=== PATIENT | male | born 1945 | race Caucasian/White ===

== ENCOUNTER → 2018-02-13 08:00 | Outpatient (CLI) | payer OTHER, SELFPAY ==
--- NOTE | 2018-02-13 08:06 | CT_ITS ---
CT lung screening EXAM: CT LUNG LOW DOSE WO CONTRAST HISTORY: 30 pack-year smoking history, asymptomatic ITS.REASON: HX OF NICOTINE DEPENDENCE ORDERING PHYSICIAN: Ayush Champion PATIENT AGE: 72 years COMPARISON: 01/30/2017 TECHNIQUE: The exam was performed on a GE Light Speed [address] scanner using 2.90 mGy CTDI. A low dose helical CT CHEST was performed on a multi-detector scanner. All CT scans at the facility use one or more dose reduction, viz: automated exposure control, ma/kV adjustment per patient size (including targeted exams where dose is matched to indication, i.e. head), or iterative reconstruction technique. The LDCT was performed in a facility that meets the criteria for the screening program. Data regarding this exam was submitted to ACR which is an approved registry. The order for this exam indicates that it came as a result of a lung cancer screening counseling shard decision-making visit that included all the elements required of such a visit including smoking cessation. The radiologist interpreting this exam meets the CMS criteria for the LDCT lung cancer screening program. The exam is reported using the Lung-RADS classification scale and reported to the ACR registry. NOTE: This study was performed for the specific purposes of lung cancer screening and is not an alternative to diagnostic chest CT. RADIATION DOSE: CTDI vol(CT dose Index-volume) = 2.90mG DLP (Dose Length Product) = 102.12 mGcm FINDINGS: There is COPD with hyperinflation and attenuation of the peripheral pulmonary vessels with a few blebs in the lung apices there is a 4 mm nodule within left major fissure unchanged benign-appearing. Scattered small nodes present in the mediastinum some which are calcified. There are coronary artery calcifications. There are multiple hepatic cysts some of which are slightly larger. For instance, a cyst within the caudate lobe measures 3.7 cm previously measuring 3.5 cm. The right hemidiaphragm is elevated. No central obstructing lesions are evident. IMPRESSION: 1. Lung RADS Category: 2, benign 2. Other findings: COPD, coronary artery calcifications, hepatic cysts RECOMMENDATIONS: 12 month LDCT follow-up
== END ==
PROVIDERS: Family Provider Family Medicine; PCP Family Medicine; Visit Provider Internal Medicine
DX: Z12.2 Encounter for screening for malignant neoplasm of respiratory organs (principal); Z87.891 Personal history of nicotine dependence

== ENCOUNTER → 2019-04-18 10:57 | Outpatient (CLI) | payer MEDICARE, OTHER, SELFPAY ==
--- NOTE | 2019-04-18 10:59 | CT_ITS ---
PROCEDURE: CT LUNG SCREENING CLINICAL INDICATION: HX TOBACCO USE Sixty pack-year smoking history, asymptomatic for lung cancer COMPARISON: LDCTLCAS LDCT FOR LUNG CA SCREEN from 01/30/[address] lung screening from 02/13/2018 TECHNIQUE: The exam was performed on a GE Light Speed [address] scanner using 2.90 mGy CTDI. A low dose helical CT CHEST was performed on a multi-detector scanner. All CT scans at the facility use one or more dose reduction, viz: automated exposure control, ma/kV adjustment per patient size (including targeted exams where dose is matched to indication, i.e. head), or iterative reconstruction technique. The LDCT was performed in a facility that meets the criteria for the screening program. Data regarding this exam was submitted to ACR which is an approved registry. The order for this exam indicates that it came as a result of a lung cancer screening counseling shard decision-making visit that included all the elements required of such a visit including smoking cessation. The radiologist interpreting this exam meets the CMS criteria for the LDCT lung cancer screening program. The exam is reported using the Lung-RADS classification scale and reported to the ACR registry. NOTE: This study was performed for the specific purposes of lung cancer screening and is not an alternative to diagnostic chest CT. RADIATION DOSE: CTDI vol(CT dose Index-volume) = 2.90mG DLP (Dose Length Product) = 104.20 mGcm FINDINGS: Stable 5 mm nodule in the right middle lobe. Elevated right hemidiaphragm with atelectatic change in the right lung base. Nodularity in the right major fissure OTHER FINDINGS: Old granulomatous disease. Coronary artery calcification. COPD. Multiple hypodense liver lesions consistent with cyst IMPRESSION: Lung rads category 2 benign Recommend continued annual screening LD CT Dictated by: Floyd Shannon MD 04/24/2019 09:24 Electronically signed by Floyd Shannon MD in [place] 04/24/2019 09:24
== END ==
PROVIDERS: PCP Family Medicine; Visit Provider Family Medicine
DX: Z87.891 Personal history of nicotine dependence (principal); Z12.2 Encounter for screening for malignant neoplasm of respiratory organs

== ENCOUNTER → 2020-01-08 15:32 | Outpatient (CLI) | payer MEDICARE, OTHER, SELFPAY ==
--- NOTE | 2020-01-08 15:36 | XR_ITS ---
PROCEDURE: XR ELBOW RT MIN 3V CLINICAL INDICATION: ELBOW PAIN, RIGHT COMPARISON: No exams were available for comparison FINDINGS: No fracture or dislocation. No lytic or blastic change. There is normal mineralization. The joint spaces are well-preserved. No significant degenerative/arthritic changes. No erosive changes evident. Other findings:None. IMPRESSION: No acute findings. Dictated by: Floyd Shannon MD 01/08/2020 17:35 Floyd Shannon MD in [place] 01/08/2020 17:35
== END ==
PROVIDERS: PCP Nurse Practitioner Family; Visit Provider Nurse Practitioner Family
DX: M25.521 Pain in right elbow (principal)
CPT/HCPCS: 73080

== ENCOUNTER 2020-11-16 12:56 | Emergency (ER) | payer MEDICARE, OTHER, SELFPAY ==
[2020-11-16 13:00] VITALS: BP 127/80; PULSE 79; RESP 20; TEMP 36.8; O2SAT 98; BMI 22.8
--- NOTE | 2020-11-16 13:33 | HMH.EDUTC ---
[facility] [place] Disposition Clinical Impression: Encounter for laboratory testing for COVID-19 virus Disposition: Home, Self-Care Condition on Discharge: Good Instructions: DI for COVID-19 (Suspected or Confirmed ), Preventing the Spread of Coronavirus Discharge Instructions Additional Instructions: *Monitor Temp, Over the counter Motrin or Tylenol as directed/as needed Tylenol every 4 hours and Motrin every 6 hours (as long as your family doctor has told you that you can take it) for fever or pain. and straight to ER if unable to lower temp less than 101.0 after medication given *Warm salt water gargles may help to soothe the throat *Throat Lozenges *Warm fluids like tea with honey may help to soothe the throat *Sleep elevated *Humidifier/Vaporizer *Flonase 2 sprays in each nostril daily but be aware that it may take 2-3 days before you notice improvement Follow up IMMEDIATELY for new or worsening symptoms or no Noticeable improvement over the next 48-72 hours. 911 for difficulty breathing or swallowing You were tested for today for COVID19 your test result should be back in the next 24-48 hours, you may call to the [facility] to see if your test results are back in the next 48 hours [phone] [facility] hours are 9am-9pm You was given a handout with instructions for Self Quarantine and Self isolation for while you wait on test results and what to do if they are positive If you are positive the Health Dept will be contacting you also Referrals: Shamar Daily MD [Primary Care Provider] - As needed Time of Disposition: 13:34 Medical Decision Making - Azael Inquiry Pt receiving controlled substance: No Azael was queried for this patient: No Vital Signs: 11/16/20 13:00 Temperature 98.2 F Temperature Source Oral Pulse Rate [Right Brachial] 79 Respiratory Rate 20 Blood Pressure [Right Arm] 127/80 Blood Pressure Mean [Right Arm] 95 Blood Pressure Source [Right Arm] Automatic Cuff Blood Pressure Position [Right Arm] Sitting 02 Sat by Pulse Oximetry 98 Oxygen Delivery Method Room Air Orders (Tests/Meds): ORDERS Category Date Time Status Covid-19 Nasal PCR ([facility]) Routine Lab 11/16/20 12:59 Ordered [facility] [place] HPI - General Stated complaint: covid test Time Seen by Provider: 11/16/20 13:33 Mode of Arrival: Ambulatory Source of Information: Patient Limitations: No Limitations Description of Symptoms (Recalled from Triage Doc. by RN): PATIENT HAS HAD A COLD BUT FEELS BETTER. SON'S GIRLFRIEND HAD COVID, HOWEVER HE WAS NOT DIRECTLY EXPOSED. WANTS TESTED HEENT Symptoms (Recalled from RN notes): Yes Resp Symptoms (Recalled from RN notes): No Skin Symptoms (Recalled from RN notes): No MS Symptoms (Recalled from RN notes): No Functional Status (Recalled from RN notes): WNL - History of Present Illness Provider Complaint: Patient states that he has been having cold like symptoms Reports that he had low grade fever, body aches, chills, and nasal congestion States that he was around his son on Monday and spoke with son's girlfiend and since then girlfriend tested positive for COVID States that he wasnt around her but was his son so he came in to get checked - Related Data Home Medications Medication Instructions Recorded Confirmed Ergocalciferol (Vitamin D2) 400 unit PO DAILY 02/26/18 03/16/18 [Vitamin D] Gelatin 600 mg PO DAILY 02/26/18 03/16/18 Melatonin 1 mg PO DAILY 02/26/18 03/16/18 Pravastatin Sodium [Pravachol 40mg 40 mg PO DAILY 02/26/18 03/16/18 Tablet] Allergies Allergy/AdvReac Type Severity Reaction Status Date / Time No Known Allergies Allergy Verified 03/16/18 10:54 - Worker's Comp Is this a Worker's Comp case?: No [facility] History - Hepatitis A Screen Drug use history?: No High risk sexual behaviors?: No History of sexually transmitted infection?: No Currently employed?: No Childcare worker?: No Do you have indoor plumbing?: Yes Do you have electricity?: Yes Attestation statement::
[2020-11-16 13:34] VITALS: BP 127/80; PULSE 79; RESP 20; TEMP 36.8; O2SAT 98
--- NOTE | 2020-11-16 19:13 | PC.NURSE ---
PATIENT NOTIFIED OF POSITIVE COVID TEST AT THIS TIME
== END 2020-11-16 13:37 | disposition home or self-care (01) ==
PROVIDERS: Emergency Provider Nurse Practitioner; PCP Family Medicine
DX: U07.1 COVID-19 (principal); I10 Essential (primary) hypertension; E78.5 Hyperlipidemia, unspecified
CPT/HCPCS: G0463; 99202; U0003

== ENCOUNTER → 2021-06-16 09:08 | Outpatient (CLI) | payer MEDICARE, SELFPAY | PROVIDERS: PCP Family Medicine; Visit Provider Surgery | DX: Z01.812 Encounter for preprocedural laboratory examination (principal); Z11.52 Encounter for screening for COVID-19; Z12.11 Encounter for screening for malignant neoplasm of colon | CPT/HCPCS: C9803; U0003; U0005 ==

== ENCOUNTER 2021-06-18 06:25 | Day surgery (SDC) | payer MEDICARE, SELFPAY ==
[2021-06-15 15:41] VITALS: BMI 22.8
[2021-06-18] VITALS (15 sets, daily range): BP systolic 97–147; BP diastolic 59–81; PULSE 76–105; RESP 16–18; TEMP 36.3–36.4; O2SAT 92–96
--- NOTE | 2021-06-18 07:58 | HMH.SCOPE ---
- Procedure: Date: 06/18/21 Patient Date of :: 1945 Procedure Performed:: Total colonoscopy with polypectomy via snare and biopsy Indications:: Patient is a 76-year-old male. He has undergone multiple previous colonoscopies. He had colonoscopy 10/11/2000 and on 12/18/[address] Coronel. He then had undergone multiple colonoscopies about every 3 years at outside facility due to polyps. I had performed colonoscopy on 01/03/2017 and he had a tubular adenoma and a subtle large sessile serrated adenoma in the transverse colon which was marked with Marianne ink. He underwent repeat colonoscopy on 02/27/2018 and had tubular adenoma. I recommended 3-year follow-up. Performing Provider:: Eulogio Sánchez MD Referring Provider:: Rodrick Daily MD Sedation:: Fentanyl 150 mcg, Versed 9 mg. Procedure:: Patient was taken to endoscopy procedure room. He was positioned in lateral decubitus position. Adequate intravenous sedation was achieved with anesthesia titration of propofol. Digital examination was performed which revealed normal sphincter tone. He had uniformly enlarged prostate. Variable stiffness Olympus colonoscope was inserted via the anus. It was advanced to the cecum. There was some undigested vegetable matter and legumes in the right colon, particularly in the cecum. Irrigation and suctioning was performed but good visualization was unable to be achieved. Xavier net was used to grab the undigested vegetable matter and manipulate this to different locations in the colon. Ultimately decent visualization was able to be achieved of the right colon using this method. The ileocecal valve and appendiceal orifice were identified. Colonoscope was slowly withdrawn through the colon with careful surveillance. Previous polypectomy site that was tattooed with Marianne ink was identified there was no evidence of any recurrence. Distal to this there was a sessile polyp removed in a piecemeal fashion using cold cutting snare. There was noted to be some moderate left-sided diverticulosis. Retroflexion within the rectum revealed no evidence of any bleeding internal hemorrhoids. He did have what appeared to be grade 1 prolapsing hemorrhoids. Colonoscope was withdrawn. Findings:: Uniformly enlarged prostate Suboptimal visualization of the right colon due to undigested vegetable matter and legumes Distal transverse colon polyp Sigmoid diverticulosis Internal hemorrhoids Recommendations:: Plan to follow-up on the histopathology. Likely repeat colonoscopy in 2 years given the suboptimal visualization of the right colon with instructions on clear low residue diet for 5 to 7 days preceding procedure. Complications:: None immediately apparent Estimated blood obtained (mL): 2
== END 2021-06-18 08:51 | disposition home or self-care (01) ==
LOC: OUTP 06:26
PROVIDERS: PCP Family Medicine; Visit Provider Surgery
PROC: 0DJD8ZZ Inspection of Lower Intestinal Tract, Via Natural or Artificial Opening Endoscopic (ICD-10-PCS; principal; 2021-06-18 07:30)
DX: Z12.11 Encounter for screening for malignant neoplasm of colon (principal); K64.9 Unspecified hemorrhoids; K63.5 Polyp of colon; K57.32 Diverticulitis of large intestine without perforation or abscess without bleeding; K52.89 Other specified noninfective gastroenteritis and colitis; N40.0 Benign prostatic hyperplasia without lower urinary tract symptoms; Z86.010 Personal history of colon polyps; E78.5 Hyperlipidemia, unspecified; I10 Essential (primary) hypertension; Z79.899 Other long term (current) drug therapy
CPT/HCPCS: 45380; 45385; 88305; 99152; 99153

== ENCOUNTER → 2023-02-15 11:27 | Outpatient (CLI) | payer MEDICARE, SELFPAY ==
--- NOTE | 2023-02-15 11:31 | XR_ITS ---
FINAL REPORT CLINICAL HISTORY: NO KNOWN INJURY COMPARISON: None FINDINGS: RIGHT SHOULDER Three views demonstrate no acute fracture or dislocation. The joint spaces appear normal. The visualized bony structures are well aligned. No soft tissue abnormality is seen. IMPRESSION: No acute process. Reviewed, Interpreted and Dictated by Eulogio Hirsch III, MD Transcribed by Diane Holcomb Authenticated and [facility]
== END ==
PROVIDERS: PCP Family Medicine; Visit Provider Family Medicine
DX: M25.511 Pain in right shoulder (principal)
CPT/HCPCS: 73030

== ENCOUNTER 2023-05-18 16:17 | Emergency (ER) | payer MEDICARE, SELFPAY ==
[2023-05-18 16:25] VITALS: BP 133/79; PULSE 92; RESP 17; TEMP 37; O2SAT 95; BMI 24.8
--- NOTE | 2023-05-18 16:38 | ED_ITS ---
Discharge Plan Disposition Patient Disposition: Home, Self-Care Condition: Good Prescriptions Prescriptions: New benzonatate [benzonatate] 100 mg capsule 100 mg PO TIDP PRN (Reason: Cough) Qty: 30 0RF ondansetron 4 mg Tablet,Disintegrating 4 mg PO Q8H PRN (Reason: Nausea) Qty: 12 0RF No Action pravastatin 40 MG tablet 40 mg PO DAILY Referrals Follow up/Referrals: Shamar Daily MD [Primary Care Provider] - See instructions Activity Restrictions/Add. Instructions Additional Instructions/Restrictions: Drink plenty of fluids. Take tylenol for pain or fever. Follow up with your regular doctor. GO TO THE ER FOR ANY WORSENING SYMPTOMS Clinical Impressions Clinical Impression: Acute viral syndrome Instructions Patient Instructions: DI for Viral Syndrome Discharge ED Provider: Cristino Monterroso [facility] General Stated complaint: stuffy head, runny nose, body aches Mode of Arrival: Ambulatory Source of Information: Patient Limitations: No Limitations Time Seen by Provider: 05/18/23 16:38 Description of Symptoms (Recalled from Triage Doc. by RN): Pt's symptoms fever, body ache, and chills. HEENT Symptoms (Recalled from RN notes): Yes Resp Symptoms (Recalled from RN notes): No Skin Symptoms (Recalled from RN notes): No MS Symptoms (Recalled from RN notes): No Functional Status (Recalled from RN notes): n/a History of Present Illness Provider Complaint: He states that for the past 2 days he has had fever, chills, and body aches. Related Data Home Medications Medication Instructions Recorded Confirmed pravastatin 40 mg tablet 40 mg PO DAILY Cholesterol 02/26/18 05/18/23 Previous Rx's Medication Instructions Recorded benzonatate 100 mg capsule 100 mg PO TIDP PRN Cough #30 caps 05/18/23 ondansetron 4 mg disintegrating 4 mg PO Q8H PRN Nausea #12 tabs 05/18/23 tablet Allergies Allergy/AdvReac Type Severity Reaction Status Date / Time No Known Allergies Allergy Verified 05/18/23 16:36 Worker's Comp Is this a Worker's Comp case?: No [facility] Disclaimer: The information contained in this section may have been updated after the patient was seen, as this information can be updated by other users. Social History Smoking Status: Current every day smoker tobacco type: cigarettes packs per day: 1 alcohol intake: current substance use type: denies use current occupational status: other Travel in the last 8 weeks: None household members: spouse housing: house current occupational exposures/hazards: No caffeine: Yes ROS Obtained: Yes All systems reviewed & no additional complaints except as documented Constitutional Constitutional: Reports chills and Reports fever(s) Eyes Eyes: Denies eye discharge ENT Ears, Nose, Mouth, and Throat: Reports as per HPI Cardiovascular Cardiovascular: Denies chest pain Respiratory Respiratory: Denies shortness of breath, Denies chest congestion, Denies cough, Denies stridor and Denies wheezing Gastrointestinal Gastrointestingal: Reports nausea; Denies abdominal pain, constipation, cramping, diarrhea or vomiting Musculoskeletal Musculoskeletal: Denies arthralgias Integumentary/Breasts Skin/Breast: Denies rash Neurologic Neurologic: Denies paresthesias Allergic/Immunologic Allergic/Immunologic: Denies wheezing Physical Exam General General appearance: alert and in no apparent distress Head Head exam: atraumatic, normocephalic and normal inspection Eye Eye exam: Present normal appearance, PERRL and EOMI ENT ENT exam: Present normal exam, normal oropharynx, mucous membranes moist, TM's normal bilaterally and normal external ear exam Neck Neck exam: Present normal inspection, full ROM and trachea midline; Absent meningismus or lymphadenopathy Chest Chest inspection: Present normal inspection and symmetric chest wall rise; Absent tenderness Respiratory Respiratory exam: Present normal lung sounds bilaterally; Absent respiratory distress Cardiovascular Cardiovascular exam: Present regular rate and normal rhythm; Absent JVD Abdominal Exam Abdominal exam: Present soft and normal bowel sounds; Absent distention, tenderness or guarding Extremities Exam Extremities exam: Present normal inspection, full ROM and normal capillary refill; Absent calf tenderness Back Exam Back exam: Present normal inspection; Absent tenderness Neurological Exam Neurological exam: Present alert and oriented X3 Psychiatric Psychiatric exam: Present normal affect and normal mood Skin Skin exam: Present warm, dry, intact and normal color Lymphatic Lymphatic Findings: no adenopathy Medical Decision Making Medical Records Medical records reviewed: No I reviewed the patient's medical records. Azael Inquiry Pt receiving controlled substance: No Vital Signs: 05/18/23 16:25 Temperature 98.6 F Temperature Source Oral Pulse Rate [Right Radial] 92 H Respiratory Rate 17 Blood Pressure [Right Arm] 133/79 Blood Pressure Mean [Right Arm] 97 Blood Pressure Source [Right Arm] Automatic Cuff Blood Pressure Position [Right Arm] Sitting 02 Sat by Pulse Oximetry 95 Oxygen Delivery Method Room Air Lab Data Lab results reviewed: Yes I reviewed the patient's lab results. Orders (Tests/Meds): ORDERS Category Date Time Status Covid-19 Nasal PCR ([facility]) Routine Lab 05/18/23 16:25 Ordered
[2023-05-18 16:50] LABS: UTC Influenza A Antigen Negative (Negative); UTC Influenza B Antigen Negative (Negative)
[2023-05-18 17:45] LABS: Adenovirus,PCR Not Detected (NotDetected); Coronavirus 19, PCR Not Detected (NotDetected); Coronavirus NL63 Not Detected (NotDetected); Coronavirus OC43 Not Detected (NotDetected); Coronovirus HKU1,PCR Not Detected (NotDetected); Human Metapneumovirus Not Detected (NotDetected); Influenza A, PCR Not Detected (NotDetected); Influenza AH1, 2009 Not Detected (NotDetected); Influenza AH1, PCR Not Detected (NotDetected); Influenza AH3,PCR Not Detected (NotDetected); Influenza B, PCR Not Detected (NotDetected); Parainfluenza 1, PCR Not Detected (NotDetected); Parainfluenza 2, PCR Not Detected (NotDetected); Parainfluenza 3, PCR Not Detected (NotDetected); Parainfluenza 4, PCR Not Detected (NotDetected); Respiratory Syncytial Virus Not Detected (NotDetected); Rhinovirus/Enterovirus Not Detected (NotDetected)
[2023-05-18 17:53] VITALS: BP 133/79; PULSE 92; RESP 17; TEMP 37; O2SAT 95
[2023-05-18 19:10] LABS: Coronavirus 229E Detected (NotDetected)
== END 2023-05-18 17:20 | disposition home or self-care (01) ==
PROVIDERS: Emergency Provider Nurse Practitioner Family; PCP Family Medicine
DX: R09.81 Nasal congestion (principal); B34.2 Coronavirus infection, unspecified; M79.18 Myalgia, other site; R50.9 Fever, unspecified; F17.210 Nicotine dependence, cigarettes, uncomplicated; R11.0 Nausea
CPT/HCPCS: 87632; 87635; 87804; 99212; 99214; G0463

== ENCOUNTER 2023-09-08 09:26 | Day surgery (SDC) | payer MEDICARE, SELFPAY ==
[2023-09-06 14:09] VITALS: BMI 25.7
[2023-09-08] VITALS (7 sets, daily range): BP systolic 92–127; BP diastolic 54–88; PULSE 68–95; RESP 18; TEMP 36.1–36.3; O2SAT 92–99
[2023-09-08] MEDS: LACTATED RINGERS 1000ML 1,000 ML 25 ML IV (09:58)
--- NOTE | 2023-09-08 10:00 | HMH.SCOPE ---
Procedure: Date: 09/08/23 Patient Date of :: 1945 Procedure Performed:: Total colonoscopy to terminal ileum with numerous polypectomy by variety of technique . Indications:: Patient is a 78-year-old male who has undergone multiple previous colonoscopies. He had colonoscopy 10/11/2000 and on 12/18/[address] Coronel. He then had undergone multiple colonoscopies about every 3 years at outside facility due to polyps. I had performed colonoscopy on 01/03/2017 and he had a tubular adenoma and a subtle-appearing but large sessile serrated adenoma in the transverse colon which was marked with Marianne ink. He underwent repeat colonoscopy on 02/27/2018 and had tubular adenoma. Colonoscopy on 06/18/2021 revealed some undigested vegetable matter and legumes in the right colon which partially temporarily obscured visualization. Ultimately with retrieval and manipulation and irrigation and suctioning decent visualization was achieved. He did have a uniformly enlarged prostate, distal transverse colon sessile serrated adenoma, sigmoid diverticulosis, mild internal hemorrhoids, and some rectosigmoid focal active colitis. Recommendations were for repeat colonoscopy 2 years. . Performing Provider:: Eulogio Sánchez MD Referring Provider:: Rodrick Daily MD Sedation:: MAC sedation Procedure:: Patient history was obtained and appropriate physical examination was performed. Patient's medications and allergies were reviewed. Informed consent was obtained after explaining the benefits, alternatives, and risks of the procedure including, but not limited to, bleeding, perforation, missed lesions, and adverse reaction to anesthesia medications. Patient was transported to endoscopy procedure room. Patient was connected to monitoring devices. Throughout the procedure the patient's blood pressure, pulse, and oxygen saturations were monitored continuously. Patient identification and planned procedure were verified by the staff. Patient was positioned in lateral decubitus position. Digital anorectal exam was performed. Variable stiffness Olympus colonoscope was inserted and advanced under direct visualization to the cecum. Adequacy of the colonic preparation was noted. The colonoscope was advanced a short distance into the terminal ileum. The colonoscope was then slowly withdrawn while carefully examining the color, texture, anatomy, and integrity of the mucosoa circumferentially. Within the rectum retroflexion was performed. Colonoscope was then withdrawn. Impression: Colonoscope was ultimately advanced to the cecum. Terminal ileum appeared normal. In the ascending colon there was a tiny punctate subtle possible early polyp removed with biopsy forceps. In the transverse colon there was a subtle but large flat sessile polyp irregular. Ultimately noted to be spanning with of approximately 25 mm. Chula view was injected submucosally to delineate polyp from normal mucosa and raise the polyp. Most of it was removed in a piecemeal fashion using hot snare. Remainder of adenomatous appearing tissue at the edges were removed with cold snare followed by biopsy forceps. It appeared as though the lesion was removed in its entirety. Marianne ink was injected to kwame the area. In the distal transverse colon previous tattoo marking with Marianne ink was noted. There was some scarring at previous polypectomy site. There was some prominent mucosa and possible polyp which was removed with cold biopsy forceps adjacent to the polypectomy scar. In the sigmoid colon there was a small adenomatous appearing polyp removed with cold snare. That he had sigmoid diverticulosis. In the distal sigmoid colon there was an irregular subtle sessile polyp. Chula view was injected and it was removed in its entirety with hot snare. Retroflexion within the rectum revealed circumferential prolapsing internal hemorrhoids. Colonoscope was withdrawn. . Findings:: Polyps as noted above. Most notable was the transverse colon polyp removed in a piecemeal fashion using hot snare and distal sigmoid polyp which appeared similar requiring injection of Chula view and removal with hot snare. Sigmoid diverticulosis Internal hemorrhoids . Recommendations:: Repeat colonoscopy pending pathology. However, given the large sessile but subtle polyp in the transverse colon and distal sigmoid colon may need repeat colonoscopy within a year to ensure complete removal. Complications:: None immediately apparent Estimated blood obtained (mL): 3 Colonoscopy Component Colonoscopy Component Was a colonoscopy performed during today's procedure?: Yes Recommended follow up colonoscopy of at least 10 years?: No If no, follow up colonoscopy recommended in ___ years?: See above Reason for not recommending >/= 10 yr follow-up interval?: See above
--- NOTE | 2023-09-08 10:21 | P.PNANES_ITS ---
[facility] Disclaimer: The information contained in this section may have been updated after the patient was seen, as this information can be updated by other users. Surgical History (Updated 09/08/23 @ 09:50 by Anju Mckeon RN) History of cholecystectomy Family History (Updated 09/08/23 @ 09:50 by Anju Mckeon RN) Other Breast cancer Social History Smoking Status: Light tobacco smoker tobacco type: cigarettes packs per day: 1 alcohol intake: current alcohol intake frequency: 0-2 drinks per day substance use type: denies use current occupational status: retired and other Travel in the last 8 weeks: None household members: spouse housing: house current occupational exposures/hazards: No caffeine: Yes [facility] Anesthesia Checklist Patient Identification Patient Identification: Arm Band Structural Data Admitted From: Home Planned Operative Procedure/s: Colonoscopy Consent for Planned Operative Procedure(s) Verified: Yes Verified Documents: Surgical Consent and History and Physical NPO Status Verified Time NPO: 00:00 Additional verifications Anesthesia Reactions: No Airway Assessment Mallampati Score:: Class II C-Spine Mobility Assessed: Yes TMJ Mobility Assessed: Yes Dentition: Good Dentition Neurological Assessment Level of Consciousness: Awake and Alert Anesthesia Plan Anesthesia Risk discussed: Yes Anesthesia Plan: Verified ASA Class: II Anesthesia Type: MAC
--- NOTE | 2023-09-08 11:58 | SUR.PHASEII ---
Pt noted a small skin tear to left hand by base of thumb. Approx .5cm long x.1cm wide. No bleeding noted. Cleansed with NS and applied 2 steri strip to hold edges of skin together. Instructed to let steri strips fall off on own and keep clean and dry. Verbalized understanding.Pt did not know how skin tear got there. No c/o pain.
--- NOTE | 2023-09-08 12:24 | SUR.PHASEII ---
Pt did not want to wait any longer for MD to come to see him. Emphasized follow up appointment date with pt and friend as well as returning to ER for severe abdominal pain or bleeding, verbalized understanding.
== END 2023-09-08 12:27 | disposition home or self-care (01) ==
PROVIDERS: PCP Family Medicine; Visit Provider Surgery
PROC: 0DJD8ZZ Inspection of Lower Intestinal Tract, Via Natural or Artificial Opening Endoscopic (ICD-10-PCS; CPT 45378; principal; 2023-09-08 10:30)
DX: Z12.11 Encounter for screening for malignant neoplasm of colon (principal); Z86.010 Personal history of colon polyps; D12.2 Benign neoplasm of ascending colon; D12.3 Benign neoplasm of transverse colon; K63.5 Polyp of colon; K57.30 Diverticulosis of large intestine without perforation or abscess without bleeding; K64.8 Other hemorrhoids
CPT/HCPCS: 45380; 45385; J2704

== ENCOUNTER 2024-01-29 15:42 | Outpatient (CLI) | payer MEDICARE, SELFPAY | END 2024-01-29 23:59 | disposition home or self-care (01) | LOC: RT 15:43 | PROVIDERS: PCP Family Medicine; Visit Provider Family Medicine | DX: R55 Syncope and collapse (principal) | CPT/HCPCS: 93225; 93227 ==

== ENCOUNTER 2024-02-21 09:56 | Outpatient (CLI) | payer MEDICARE, SELFPAY | END 2024-02-21 23:59 | disposition home or self-care (01) | LOC: LAB 10:00 | PROVIDERS: PCP Family Medicine; Visit Provider Family Medicine | DX: R55 Syncope and collapse (principal) | CPT/HCPCS: 93225; 93227 ==

== ENCOUNTER 2024-09-27 09:27 | Day surgery (SDC) | payer MEDICARE, SELFPAY ==
--- NOTE | 2024-09-27 09:18 | EXP.GEN.HP ---
HPI HPI HPI: Patient is a 79-year-old male who presents for follow-up colonoscopy. He has undergone multiple previous colonoscopies. He had colonoscopy 10/11/2000 and on 12/18/[address] Coronel. He then had undergone multiple colonoscopies about every 3 years at outside facility due to polyps. I had performed colonoscopy on 01/03/2017 and he had a tubular adenoma and a subtle-appearing but large sessile serrated adenoma in the transverse colon which was marked with Marianne ink. He underwent repeat colonoscopy on 02/27/2018 and had tubular adenoma. Colonoscopy on 06/18/2021 revealed some undigested vegetable matter and legumes in the right colon which partially temporarily obscured visualization. He had distal transverse colon sessile serrated adenoma, sigmoid diverticulosis, mild internal hemorrhoids, and some rectosigmoid focal active colitis. Recommendations were for repeat colonoscopy 2 years. Follow-up colonoscopy was done on 09/21/2023 at which time he was noted to have polyps once again. However there was a large 25mm sessile but subtle polyp in the transverse colon and distal sigmoid colon which required injection Ellaview and hot snare for removal. Large transverse colon polyp pathology revealed sessile serrated lesion. There was distal transverse colon previous tattoo noted without recurrence. Given this recommendations were for follow-up colonoscopy 1 year to ensure complete removal. [facility] Disclaimer: The information contained in this section may have been updated after the patient was seen, as this information can be updated by other users. Medical History Urine troubles History of COVID-19 Hyperlipidemia Surgical History History of cholecystectomy Family History Other Breast cancer Social History (Updated 09/27/24 @ 09:54 by Natalie Jon RN) Smoking Status: Light tobacco smoker tobacco type: cigarettes packs per day: 1 alcohol intake: current alcohol intake frequency: 0-2 drinks per day substance use type: denies use current occupational status: retired Travel in the last 8 weeks?: None household members: spouse housing: house current occupational exposures/hazards: No caffeine: Yes Have you lived/traveled outside [place] in past 30 days?: No Contact w/someone who lives/traveled outside [place] past 30 days?: No Exposure to someone with infectious disease in past 14 days?: No Do you have a fever (greater than 100.4 F or 38 C)?: No Have you tested positive for COVID-19?: No Exposed to someone with COVID-19 in past 14 days?: No Do you have a sore throat?: No Do you have a cough?: No Do you have any weakness?: No Are you experiencing any nausea/vomitting?: No Do you have any diarrhea?: No Are you experiencing any unusual bleeding?: No Do you have any muscle aches/pain?: No Do you have any abdominal pain?: No Are you experiencing loss of taste or smell?: No Other Medical History Have you received the Flu Vaccine for this season: Yes Have you received the Pneumonia Vaccine: Yes Review of Systems Review of Systems Review of systems:: pertinent systems reviewed and negative unless documented below Meds Home Medications and Allergies Home Medications ?Medication ?Instructions ?Recorded ?Confirmed ?Type pravastatin 40 mg tablet 40 mg PO DAILY Cholesterol 02/26/18 09/27/24 History New Prescriptions to Start Prescriptions: Allergies Allergy/AdvReac Type Severity Reaction Status Date / Time No Known Allergies Allergy Verified 09/27/24 09:45 Exam Constitutional Constitutional: no acute distress *Routine HEENT Exam Head: Present normocephalic Eye: Present EOMI and PERRL ENT: Present mucous membranes moist *Routine Neck Exam Neck: Present supple; Absent lymphadenopathy *Routine Respiratory Exam Respiratory: Present CTA bilaterally *Routine Cardiovascular Exam Cardiovascular: Present RRR *Routine Abdominal Exam Abdominal: Present soft and normoactive bowel sounds; Absent tenderness *Routine Rectal Exam Rectal:: deferred *Routine Genitalia Exam Genitalia:: deferred *Routine Extremities Exam Extremities: Absent cyanosis, clubbing or edema *Routine Skin Exam Skin: Present warm; Absent rash *Routine Neurological Exam Neurological: Present alert and oriented X3 Assessment and Plan *Assessment and plan (1) Adenomatous polyp of transverse colon: Status: Acute Category: Medical Code(s): D12.3 - Benign neoplasm of transverse colon Plan Given the complex large polyp noted a year ago plan is for follow-up colonoscopy
[2024-09-27 09:49] VITALS: BP 134/80; PULSE 102; RESP 16; TEMP 36.3; O2SAT 95; BMI 22.8
[2024-09-27] MEDS: LACTATED RINGERS 1000ML 1,000 ML 50 ML IV (10:12)
--- NOTE | 2024-09-27 10:44 | EXP.ANES.CKL ---
[facility] Disclaimer: The information contained in this section may have been updated after the patient was seen, as this information can be updated by other users. Medical History Urine troubles History of COVID-19 Hyperlipidemia Surgical History History of cholecystectomy Family History Other Breast cancer Social History (Updated 09/27/24 @ 09:54 by Natalie Jon RN) Smoking Status: Light tobacco smoker tobacco type: cigarettes packs per day: 1 alcohol intake: current alcohol intake frequency: 0-2 drinks per day substance use type: denies use current occupational status: retired Travel in the last 8 weeks?: None household members: spouse housing: house current occupational exposures/hazards: No caffeine: Yes Have you lived/traveled outside [place] in past 30 days?: No Contact w/someone who lives/traveled outside [place] past 30 days?: No Exposure to someone with infectious disease in past 14 days?: No Do you have a fever (greater than 100.4 F or 38 C)?: No Have you tested positive for COVID-19?: No Exposed to someone with COVID-19 in past 14 days?: No Do you have a sore throat?: No Do you have a cough?: No Do you have any weakness?: No Are you experiencing any nausea/vomitting?: No Do you have any diarrhea?: No Are you experiencing any unusual bleeding?: No Do you have any muscle aches/pain?: No Do you have any abdominal pain?: No Are you experiencing loss of taste or smell?: No [facility] Anesthesia Checklist Patient Identification Patient Identification: Arm Band Structural Data Admitted From: Home Planned Operative Procedure/s: Colonoscopy Consent for Planned Operative Procedure(s) Verified: Yes Verified Documents: Surgical Consent and History and Physical NPO Status Verified Time NPO: 00:00 Additional verifications Anesthesia Reactions: No Airway Assessment Mallampati Score:: Class II C-Spine Mobility Assessed: Yes TMJ Mobility Assessed: Yes Dentition: Good Dentition Neurological Assessment Level of Consciousness: Awake, Alert and Appropriate Anesthesia Plan Anesthesia Risk discussed: Yes Anesthesia Plan: Verified ASA Class: II Anesthesia Type: MAC
[2024-09-27 10:52] VITALS: BP 90/51; PULSE 81; RESP 15; TEMP 36.3; O2SAT 95
--- NOTE | 2024-09-27 10:53 | HMH.SCOPE ---
Procedure: Date: 09/27/24 Patient Date of :: 1945 Procedure Performed:: Total colonoscopy to terminal ileum with polypectomy using biopsy forceps Indications:: Patient is a 79-year-old male who presents for follow-up colonoscopy. He has undergone multiple previous colonoscopies. He had colonoscopy 10/11/2000 and on 12/18/[address] Coronel. He then had undergone multiple colonoscopies about every 3 years at outside facility due to polyps. I had performed colonoscopy on 01/03/2017 and he had a tubular adenoma and a subtle-appearing but large sessile serrated adenoma in the transverse colon which was marked with Marianne ink. He underwent repeat colonoscopy on 02/27/2018 and had tubular adenoma. Colonoscopy on 06/18/2021 revealed some undigested vegetable matter and legumes in the right colon which partially temporarily obscured visualization. He had distal transverse colon sessile serrated adenoma, sigmoid diverticulosis, mild internal hemorrhoids, and some rectosigmoid focal active colitis. Recommendations were for repeat colonoscopy 2 years. Follow-up colonoscopy was done on 09/21/2023 at which time he was noted to have polyps once again. However there was a large 25mm sessile but subtle polyp in the transverse colon and distal sigmoid colon which required injection Ellaview and hot snare for removal. Large transverse colon polyp pathology revealed sessile serrated lesion. There was distal transverse colon previous tattoo noted without recurrence. Given this recommendations were for follow-up colonoscopy 1 year to ensure complete removal. Performing Provider:: Eulogio Sánchez MD Referring Provider:: Rodrick Daily MD Sedation:: MAC sedation Procedure:: Patient history was obtained and appropriate physical examination was performed. Patient's medications and allergies were reviewed. Informed consent was obtained after explaining the benefits, alternatives, and risks of the procedure including, but not limited to, bleeding, perforation, missed lesions, and adverse reaction to anesthesia medications. Patient was transported to endoscopy procedure room. Patient was connected to monitoring devices. Throughout the procedure the patient's blood pressure, pulse, and oxygen saturations were monitored continuously. Patient identification and planned procedure were verified by the staff. Patient was positioned in lateral decubitus position. Digital anorectal exam was performed. Variable stiffness Olympus colonoscope was inserted and advanced under direct visualization to the cecum. Adequacy of the colonic preparation was noted. The colonoscope was advanced a short distance into the terminal ileum. The colonoscope was then slowly withdrawn while carefully examining the color, texture, anatomy, and integrity of the mucosoa circumferentially. Within the rectum retroflexion was performed. Colonoscope was then withdrawn. Impression: There was some particulate stool and medication material in the right colon which was able to be partially cleared with irrigation and suctioning. There was nonbleeding AVM in the cecum. There were a couple of tiny minuscule polyps in the cecum removed with biopsy forceps. There was a diminutive polyp in the ascending colon removed with biopsy forceps. In the transverse colon the 2 previously noted areas of tattooing were identified without any evidence of recurrent polyp. Descending colon revealed diverticulosis. Within the rectum there were several hyperplastic appearing polyps the larger of which were removed with biopsy forceps. . Findings:: Diminutive polyps as noted above Previously noted tattooed polypectomy sites without any evidence of recurrence Sigmoid diverticulosis Recommendations:: Follow-up colonoscopy pending pathology. Given the prior history likely 2 years Complications:: None immediately apparent Estimated blood obtained (mL): 1 Colonoscopy Component Colonoscopy Component Was a colonoscopy performed during today's procedure?: Yes Recommended follow up colonoscopy of at least 10 years?: No If no, follow up colonoscopy recommended in ___ years?: 2 Reason for not recommending >/= 10 yr follow-up interval?: See above
[2024-09-27 11:02] VITALS: BP 97/57; PULSE 77; RESP 16; O2SAT 94
[2024-09-27 11:12] VITALS: BP 95/62; PULSE 80; RESP 16; O2SAT 98
[2024-09-27 11:22] VITALS: BP 106/70; PULSE 83; RESP 18; O2SAT 95
== END 2024-09-27 11:34 | disposition home or self-care (01) ==
PROVIDERS: PCP Family Medicine; Visit Provider Surgery
PROC: 0DJD8ZZ Inspection of Lower Intestinal Tract, Via Natural or Artificial Opening Endoscopic (ICD-10-PCS; CPT 45380; principal; 2024-09-27 10:30)
DX: Z12.11 Encounter for screening for malignant neoplasm of colon (principal); D12.2 Benign neoplasm of ascending colon; D12.0 Benign neoplasm of cecum; Q27.33 Arteriovenous malformation of digestive system vessel; K62.1 Rectal polyp; K57.30 Diverticulosis of large intestine without perforation or abscess without bleeding; E78.5 Hyperlipidemia, unspecified; F17.210 Nicotine dependence, cigarettes, uncomplicated; Z86.0102 Personal history of hyperplastic colon polyps; Z90.49 Acquired absence of other specified parts of digestive tract; Z86.0101 Personal history of adenomatous and serrated colon polyps; Z86.16 Personal history of COVID-19; Z79.899 Other long term (current) drug therapy
CPT/HCPCS: 45380; 88305; J2003; J2704; J7120